=== PATIENT | male | born 2000 | race Caucasian/White ===

== ENCOUNTER 2022-02-12 13:53 | Emergency (ER) | payer OTHER, SELFPAY ==
[2022-02-12] VITALS (14 sets, daily range): BP systolic 117–128; BP diastolic 77–86; PULSE 60–72; RESP 9–16; TEMP 36.9; O2SAT 98–99
--- NOTE | 2022-02-12 14:00 | RT.EKG_ITS ---
APPROVED REPORT Exam: Resting ECG Reason for Exam: weakness Patient Location: E HR:64 bpm ECG Measurements Heart Rate 64 AXIS DC 164 P 26 QRSd 90 QRS 18 QT 373 T 39 QTc 386 Conclusion Sinus rhythm...normal P axis, V-rate 60- 99 ST elev, probable normal early repol pattern...ST elevation, age<55
--- NOTE | 2022-02-12 14:34 | DI.CT_ITS ---
Exam(s) CT BRAIN NECK CTA EXAM: CT BRAIN NECK CTA CLINICAL HISTORY: headache and dizziness with exertion today. TECHNIQUE: Imaging Protocol: Axial CT angiography was performed with multi-slice acquisition and mu lti-planar and/or 3D reconstructions. CONTRAST MATERIAL: Intravenous: Omnipaque 350 Contrast volume:85 mL COMPARISON: No exams were available for comparison FINDINGS: CT Head W/O and W: Ventricles and Extra axial spaces: Normal in size and morphology for the patient's age. Hemorrhage: None. Cerebral parenchyma: Normal. No evidence of an acute territorial infarct. Midline shift: None. Brainstem/Cerebellum: Normal. Calvarium: Normal. Visualized Paranasal sinuses/Mastoids: Clear. Soft Tissues: Unremarkable. Enhancement: Unremarkable. CTA Neck W: Common Carotid: Right: No dissection, occlusion or significant stenosis. Left: No dissection, occlusion or significant stenosis. External Carotid: Right: No occlusion or significant stenosis. Left: No occlusion or significant stenosis. Internal Carotid: Right: No dissection, occlusion or significant stenosis. Left: No dissection, occlusion or significant stenosis. Vertebral Artery: Right: No dissection, occlusion or significant stenosis. Left: No dissection, occlusion or significant stenosis. Lung Apices: Normal. Bones: Within normal limits for the patient's age. Soft Tissues: Normal. Thyroid gland: Unremarkable. CTA Brain W: Internal Carotid Arteries: Normal. Anterior Cerebral Arteries: Right: No aneurysm, occlusion or significant stenosis. The right anterior cerebral artery arises fro m the anterior communicating artery. Left: No aneurysm, occlusion or significant stenosis. Middle Cerebral Arteries: Right: No aneurysm, occlusion or significant stenosis. Left: No aneurysm, occlusion or significant stenosis. Posterior Cerebral Arteries: Right: No aneurysm, occlusion or significant stenosis. Left: No aneurysm, occlusion or significant stenosis. Vertebral Arteries: Right: No aneurysm, occlusion or significant stenosis. Left: No aneurysm, occlusion or significant stenosis. Basilar Artery: No aneurysm, occlusion or significant stenosis. IMPRESSION: 1. No large vessel occlusion or significant stenosis on the CT angiography of the head. 2. No acute intracranial process. 3. No occlusion or significant stenosis on the CT angiography of the neck. 4. Results of this exam have been verbally communicated with provider. RADIATION DOSE DELIVERED: 1343.44 mGy.cm Total DLP DATA REPOSITORY: All CT scans at this facility are submitted to the National Radiology Data Registry (NRDR) Dose Index Registry (DIR) with the [employer] (ACR). RADIATION OPTIMIZATION: All CT scans at this facility use at least one of these dose optimization te chniques: automated exposure control; mA and/or kV adjustment per patient size (includes targeted exa ms where dose is matched to clinical indication); or iterative reconstruction.
[2022-02-12 15:04] LABS: Abs Immature Grans 0.02 10^3/uL (0.0-0.06); Absolute Basophil Count 0.05 10^3/uL (0.0-0.2); Absolute Eosinophil Count 0.05 10^3/uL (0.0-0.7); Absolute Lymphocyte Count 1.11 10^3/uL (1.2-3.4); Absolute Monocyte Count 0.51 10^3/uL (0.1-0.8); Absolute Neutrophil Count 5.56 10^3/uL (1.2-6.7); Basophils % 0.7; Eosinophils % 0.7; HCT 43.9 % (40.0-50.0); HGB 15.3 g/dL (13.5-17.5); Immature Grans % 0.3; Lymphocytes % 15.2; MCH 30.7 pg (27.0-33.0); MCHC 34.9 % (32.0-36.0); MCV 88.2 fL (80-95); MPV 10.1 fL (8.0-11.0); Neutrophils % 76.1; Nucleated RBC 0 %; Platelet Count 191 10^3/uL (130-400); RBC 4.98 10^6/uL (4.36-5.78); RDW 11.8 % (11.8-14.1); RDW-SD 37.6 fL
[2022-02-12 15:27] LABS: ALT 32 U/L (16-63); AST 22 U/L (15-37); Albumin 4.5 g/dL (3.4-5.0); Alkaline Phosphatase 106 U/L (46-116); Anion Gap 8.9 mmol/L (3-11); BUN 18 mg/dL (7-18); Bilirubin, Total 0.8 mg/dL (0.2-1.0); CO2 28.1 mmol/L (21.0-32.0); Chloride 103 mmol/L (98-107); Glucose 91 mg/dL (74-106); Magnesium 1.9 mg/dL (1.8-2.4); Potassium 4.6 mmol/L (3.5-5.1); Sodium 140 mmol/L (136-145); Total Protein 7.6 g/dL (6.4-8.2); Troponin I < 50 ng/L (<or=60)
--- NOTE | 2022-02-12 17:21 | ED.GENADUL_ITS ---
Discharge Plan Disposition Patient Disposition: HOME Condition: Stable Discharge Details Clinical Impression: Dizziness, Headache Primary Care Provider: Unknown,Unknown ED Provider: Perry Hernandez Discharge Instructions Instructions: Dizziness (ED), General Headache (ED) Additional Instructions: No exertional activities (no sports) until cleared by your doctor. Please wear Holter monitor and returned as instructed. This device will monitor for any arrhythmia over the next 48 hours. Please contact your primary care physician to arrange follow-up. Return to the ER immediately for any worsening or new concerning symptoms. Discharge Orders Other Ambulatory Orders: Holter Monitor (Routine) Timeframe: 1 Week Facility: [facility] - Location: Respiratory Therapy Ordered By: Perry Hernandez Discharge Data Discharge Date/Time-TO BE ENTERED AT DEPARTURE: 02/12/22 18:35 Medical Decision Making --21-year-old male here with sudden onset of dizziness and headache that occurred with exertional activity just prior to arrival, associated heaviness with use of the left hand and difficulty ambulating. Patient is now hemodynamically stable. Neurologically intact. Headache resolved. Unclear etiology for symptoms. Consider intracranial aneurysm. Plan to obtain CT of the brain with CTA of the brain and neck. Unlikely ACS as patient otherwise healthy and atypical presentation. Screening EKG was reviewed and interpreted by me: Please see report, sinus rhythm 64 bpm, ST elevation consistent with benign early repolarization. Will check troponin. --Labs reviewed and normal CBC, normal electrolytes, troponin negative. --CT of the head and CTA interpreted by radiology as negative. Repeat troponin negative. Patient was given LR 500 mL bolus. --Patient reassessed and remained stable. Plan for discharge with outpatient follow-up with PCP. I will initiate Holter monitor to expedite outpatient work- up. Patient is encouraged to return immediately for any worsening or new concerning symptoms. Advised that he not participate in sports or perform exertional activities until cleared by his primary care physician. Lab Data Lab results reviewed: Yes I reviewed the patient's lab results. Labs: Laboratory Tests Range/Units 02/12/22 02/12/22 02/12/22 14:58 14:58 17:55 WBC (4.4-10.8) 10^3/uL 7.30 RBC (4.36-5.78) 10^6/uL 4.98 Hgb (13.5-17.5) g/dL 15.3 Hct (40.0-50.0) % 43.9 MCV (80-95) fL 88.2 MCH (27.0-33.0) pg 30.7 MCHC (32.0-36.0) % 34.9 RDW (11.8-14.1) % 11.8 Plt Count (130-400) 10^3/uL 191 MPV (8.0-11.0) fL 10.1 Immature Gran % 0.3 Neutrophils % 76.1 Lymphocytes % 15.2 Monocytes % 7.0 Eosinophils % 0.7 Basophils % 0.7 Nucleated RBC % % 0 Absolute Neutrophils (1.2-6.7) 10^3/uL 5.56 Absolute Lymphocytes (1.2-3.4) 10^3/uL 1.11 L Absolute Monocytes (0.1-0.8) 10^3/uL 0.51 Absolute Eosinophils (0.0-0.7) 10^3/uL 0.05 Absolute Basophils (0.0-0.2) 10^3/uL 0.05 Sodium (136-145) mmol/L 140 Potassium (3.5-5.1) mmol/L 4.6 Chloride (98-107) mmol/L 103 Carbon Dioxide (21.0-32.0) mmol/L 28.1 Anion Gap (3-11) mmol/L 8.9 BUN (7-18) mg/dL 18 Creatinine (0.70-1.30) mg/dL 1.0 Estimated GFR/1.73 m2 (mL/min/1.73m2) >= 60.00 Glucose (74-106) mg/dL 91 Calcium (8.5-10.1) mg/dL 9.0 Magnesium (1.8-2.4) mg/dL 1.9 Total Bilirubin (0.2-1.0) mg/dL 0.8 AST (15-37) U/L 22 ALT (16-63) U/L 32 Alkaline Phosphatase (46-116) U/L 106 Troponin I (<or=60) ng/L < 50 < 50 Total Protein (6.4-8.2) g/dL 7.6 Albumin (3.4-5.0) g/dL 4.5 HPI General Mode of arrival: ambulatory . Date/Time Provider Initiated Documentation: 02/12/22 13:54 . Limitations to Documentation: no limitations . Information obtained by: patient . HPI Narrative: 21-year-old male presents with chief complaint of dizziness. Patient notes he was at baseball practice having completed batting practice and was moving a heavy piece of equipment and suddenly developed dizziness with associated headache. He notes symptoms were moderate and persisted. He had associated heaviness trying to lift an object with his left hand. Patient has had difficulty walking. This occurred just prior to arrival. Symptoms have since improved. He has no persistent headache. Patient denies associated chest pain or shortness of breath. Prior to this episode he notes he was feeling fine today. He does state he had similar episode 2 weeks ago that was less severe. Related Data Allergies Allergy/AdvReac Type Severity Reaction Status Date / Time No Known Allergies Allergy Unverified 02/12/22 14:11 General Stated Complaint: SOB LARRY: 3 Review of Systems All systems reviewed & are unremarkable except as noted in HPI and below Constitutional Constitutional: Denies fever(s) Cardiovascular Cardiovascular: Denies chest pain Neurologic Neurologic: Reports as per HPI PFSH All Active Problems (Updated 02/12/22 @ 18:21 by Perry Hernandez MD) Dizziness (Acute) Headache (Acute) Social History Smoking/Tobacco Use Status: Never Smoking risk assessment performed?: Yes Alcohol Intake: current Substance use type: does not use Exam Const General: cooperative and no acute distress HENMT Head: normocephalic and atraumatic Mouth: moist mucous membranes Eyes Conjunctivae: normal conjunctivae Sclera: normal sclerae Neck Neck: trachea midline and supple Resp Auscultation: clear to auscultation bilaterally, no rales, no rhonchi and no wheezes Cardio Rate: regular rate and not tachycardic Rhythm: regular rhythm GI Palpation: soft, not firm, no guarding, no masses, not rigid and nontender Skin General skin exam: no rashes or lesions noted Neuro General: patient alert, patient awake, patient oriented x3 and tone normal Cranial Nerves: CN's II-XI intact bilaterally Cognition: normal cognition Speech: speech normal Motor: strength 5/5 throughout Sensory Exam: no sensory deficits noted Coordination: [id number] test normal and other (Rapid alternating movements intact) Extrem General: no edema Psych Appearance: grossly normal Mental Status: mental status grossly normal Speech and Movement: speech and movement normal Course Vital Signs Vital signs: Vital Signs Temperature 36.9 C 02/12/22 14:02 Pulse 65 02/12/22 14:02 Respiratory Rate 16 02/12/22 14:02 Blood Pressure 124/86 02/12/22 14:02 Pulse Oximetry 99 02/12/22 14:02 Temperature 36.9 C 02/12/22 14:02 Temperature Source Skin 02/12/22 14:02 Pulse 63 02/12/22 14:46 Pulse 68 02/12/22 14:47 Respiratory Rate 9 L 02/12/22 15:05 Respiratory Effort Non-Labored 02/12/22 15:05 Respiratory Depth Normal 02/12/22 15:05 Respiratory Pattern Normal 02/12/22 15:05 Blood Pressure 119/83 02/12/22 14:46 Blood Pressure Mean 92 02/12/22 14:46 Blood Pressure Position Supine 02/12/22 14:02 Pulse Oximetry 99 02/12/22 14:02 Pain Level 0 02/12/22 14:02 Lab/Test Results Lab/Test Results: Laboratory Tests Range/Units 02/12/22 02/12/22 14:58 14:58 WBC (4.4-10.8) 10^3/uL 7.30 RBC (4.36-5.78) 10^6/uL 4.98 Hgb (13.5-17.5) g/dL 15.3 Hct (40.0-50.0) % 43.9 MCV (80-95) fL 88.2 MCH (27.0-33.0) pg 30.7 MCHC (32.0-36.0) % 34.9 RDW (11.8-14.1) % 11.8 Plt Count (130-400) 10^3/uL 191 MPV (8.0-11.0) fL 10.1 Immature Gran % 0.3 Neutrophils % 76.1 Lymphocytes % 15.2 Monocytes % 7.0 Eosinophils % 0.7 Basophils % 0.7 Nucleated RBC % % 0 Absolute Neutrophils (1.2-6.7) 10^3/uL 5.56 Absolute Lymphocytes (1.2-3.4) 10^3/uL 1.11 L Absolute Monocytes (0.1-0.8) 10^3/uL 0.51 Absolute Eosinophils (0.0-0.7) 10^3/uL 0.05 Absolute Basophils (0.0-0.2) 10^3/uL 0.05 Sodium (136-145) mmol/L 140 Potassium (3.5-5.1) mmol/L 4.6 Chloride (98-107) mmol/L 103 Carbon Dioxide (21.0-32.0) mmol/L 28.1 Anion Gap (3-11) mmol/L 8.9 BUN (7-18) mg/dL 18 Creatinine (0.70-1.30) mg/dL 1.0 Estimated GFR/1.73 m2 (mL/min/1.73m2) >= 60.00 Glucose (74-106) mg/dL 91 Calcium (8.5-10.1) mg/dL 9.0 Magnesium (1.8-2.4) mg/dL 1.9 Total Bilirubin (0.2-1.0) mg/dL 0.8 AST (15-37) U/L 22 ALT (16-63) U/L 32 Alkaline Phosphatase (46-116) U/L 106 Troponin I (<or=60) ng/L < 50 Total Protein (6.4-8.2) g/dL 7.6 Albumin (3.4-5.0) g/dL 4.5
[2022-02-12] MEDS: Lactated Ringers 500 ML 1000 ML IV (17:45)
[2022-02-12 18:17] LABS: Troponin I < 50 ng/L (<or=60)
--- NOTE | 2022-02-12 18:32 | NUR.NOTE ---
Referral to PCP needed to establish care, and f/u from ed visit and clearance, SUJEY.
== END 2022-02-12 18:35 | disposition home or self-care (01) ==
PROVIDERS: Emergency Provider Student in an Organized Health Care Education/Training Program
DX: R42 Dizziness and giddiness (principal); R51.9 Headache, unspecified; R94.31 Abnormal electrocardiogram [ECG] [EKG]
CPT/HCPCS: 36415; 70496; 70498; 80053; 93005; 96360; 99284; 83735; 84484; 85025; 93010; 93225

== ENCOUNTER 2022-02-12 18:33 | Outpatient (RCR) | payer OTHER, SELFPAY ==
--- NOTE | 2022-02-18 12:00 | HOLTER_ITS ---
APPROVED REPORT Conclusion This is a 48-hour Holter monitor ordered for dizziness Predominant rhythm was sinus with an average heart rate of 69. Minimum was 51, maximum 109 A total of 4 isolated premature ventricular contractions were seen. There was one isolated atrial pr emature beat There was no atrial fibrillation, no high-grade AV block, no pauses greater than 3 seconds Patient symptoms were reported which had no correlation to any dysrhythmia
== END 2022-03-02 23:59 | disposition home or self-care (01) ==
LOC: RT 18:33
PROVIDERS: Visit Provider Student in an Organized Health Care Education/Training Program
DX: R42 Dizziness and giddiness (principal); I49.3 Ventricular premature depolarization
CPT/HCPCS: 93225; 93226

== ENCOUNTER 2022-02-18 12:30 | Emergency (ER) | payer OTHER, SELFPAY ==
[2022-02-18] VITALS (16 sets, daily range): BP systolic 112–137; BP diastolic 62–90; PULSE 0–91; RESP 9–18; TEMP 36.8; O2SAT 95–100
--- NOTE | 2022-02-18 12:15 | RT.EKG_ITS ---
APPROVED REPORT Exam: Resting ECG Reason for Exam: sob Patient Location: E HR:70 bpm ECG Measurements Heart Rate 70 AXIS RI 153 P 57 QRSd 89 QRS 48 QT 356 T 59 QTc 383 Conclusion Sinus rhythm...normal P axis, V-rate 60- [address] elevation, anterior leads...ST >0.15mV in V1-V4 normal sinus rhythm, normal axis, normal intervals, no evidence of WPW, HOCM, Brugada, ARVD, or prolo nged QT, non ischemic
--- NOTE | 2022-02-18 12:45 | DI.CT_ITS ---
Exam(s) CT CHEST PE CTA EXAM: CT CHEST PE CTA CLINICAL HISTORY: repeated syncope, sob. TECHNIQUE: Imaging Protocol: Axial CT angiography was performed with multi-slice acquisition and mu lti-planar reconstructions as well as axial, coronal and sagittal MIP reconstructions. CONTRAST MATERIAL: Intravenous: Omnipaque 350 Contrast volume:100 ml COMPARISON: CT CT BRAIN NECK CTA from 02/12/2022 FINDINGS: Pulmonary Arteries: No evidence of filling defect to suggest pulmonary emboli. Tracheobronchial tree: Patent where visualized. Mediastinum and Joyce: No dominant adenopathy or fluid collection. Pulmonary parenchyma: No consolidation or dominant measurable mass. Pleura: No effusion or pneumothorax. Heart: The heart is not dilated. No coronary artery calcifications are seen. Aorta: Motion at the aortic root. Thoracic aorta non-dilated. No aneurysm. No dissection. Upper abdomen: Unremarkable. Bones: Unremarkable for age. Soft tissues: Mild bilateral gynecomastia. IMPRESSION: No evidence of pulmonary embolism or other acute abnormality.. RADIATION DOSE DELIVERED: 501.67mGy.cm Total DLP DATA REPOSITORY: All CT scans at this facility are submitted to the National Radiology Data Registry (NRDR) Dose Index Registry (DIR) with the [employer] (ACR). RADIATION OPTIMIZATION: All CT scans at this facility use at least one of these dose optimization te chniques: automated exposure control; mA and/or kV adjustment per patient size (includes targeted exa ms where dose is matched to clinical indication); or iterative reconstruction.
--- NOTE | 2022-02-18 13:03 | ED.GENADUL_ITS ---
Discharge Plan Disposition Patient Disposition: HOME Condition: Improving Discharge Details Chief Complaint: Dizzy/Sync Clinical Impression: Dizziness, Pre-syncope Primary Care Provider: Unknown,Unknown ED Provider: Richar Anthony Home Meds and New Rx's Prescriptions: No Action No Known Home Meds 0RF Discharge Instructions Instructions: Near Syncope (ED), Dizziness (ED) Additional Instructions: Please follow-up with cardiology and neurology as scheduled. Please return to the emergency department for any worsening symptoms such as worsening headache nausea vomiting weakness fatigue passing out chest pain or trouble breathing or other abnormal symptoms. Ensure that you stay hydrated. Please abstain from strenuous physical activity until you are evaluated by the specialist Medical Decision Making 21-year-old male no past medical history presents with recurrent episodes of presyncope, fatigue, and shortness of breath. Denies recent illness or travel. Denies drug or alcohol use. Denies history of premature cardiac in the family. Endorses presyncope and shortness of breath. Currently be evaluated with Holter monitor. Event today happened when going from a seated/resting to a standing position. Denies chest pain however does endorse shortness of breath. No peripheral edema. No PE risk factors no ACS risk factors. Consider orthostatic hypotension versus less likely vasovagal syncope/presyncope versus must consider cardiogenic cause such as HOCM versus less likely myocarditis pericarditis PE or aortic dissection. No evidence of heart block WPW HOCM Brugada ARVD or prolonged QTC on EKG. Bedside ultrasound showing normal appearing ejection fraction, no pericardial effusion, normal valvular motion. However given repeat event we will pursue evaluation with labs, CT chest, EKG, trial of fluids close reassessment likely discharge with follow-up. 15: 58 patient resting comfortably no acute distress ambulatory without assistance symptomatology greatly improved after fluids. Likely component of dehydration. Holter monitor results reviewed evidence of PVCs without arrh ythmia. Patient be given cardiology and neurology follow-up. Given strict return precautions. Told to abstain from his physical activity until he is evaluated by these specialist. HPI General Date/Time Provider Initiated Documentation: 02/18/22 12:43 . HPI Narrative: 21-year-old male no past medical history presents with recurrent presyncopal and syncopal episodes over the past week, first initial presentation was after exertion at which point he developed a headache and motor deficits, was evaluated with CT CTA head and neck as well as cardiac evaluation was negative, discharged home with Holter monitor and follow-up, today patient was going from a seated/lying down position to a standing position became presyncopal and experienced shortness of breath. Denies nausea vomiting or diarrhea. Denies drug or alcohol use. No family history of sudden cardiac . Related Data Home Medications Medication Instructions Recorded Confirmed Unknown [No Known Home Meds] 02/18/22 02/18/22 Allergies Allergy/AdvReac Type Severity Reaction Status Date / Time No Known Allergies Allergy Unverified 02/18/22 12:35 General Stated Complaint: Dizzy/Sync LARRY: 3 Review of Systems Narrative: Review of Systems Constitutional: negative Eyes: negative ENT: negative Cardiovascular: Presyncope Respiratory: Shortness of breath Gastrointestinal: negative : negative Musculoskeletal: negative Skin: negative Neurologic: negative Psych: negative PFSH All Active Problems (Updated 02/18/22 @ 16:00 by Richar Anthony MD) Dizziness (Acute) Headache (Acute) Pre-syncope (Acute) Social History Smoking/Tobacco Use Status: Never Smoking risk assessment performed?: Yes Alcohol Intake: never Drug use: Never Substance use type: does not use Do you feel safe at home: Yes Do you feel safe in your relationship?: Yes Exam Narrative Exam Narrative: Physical Examination General: alert, awake, cooperative, appears mildly uncomfortable HEENT: normocephalic, atraumatic; PERRL, EOM intact, conjunctiva normal; no nasal discharge; moist mucous membranes, oral and pharyngeal mucosa normal, tolerating secretions Neck: supple, trachea midline; full ROM Chest: normal to inspection Respiratory: normal respiratory effort, speaking in full sentences, clear to auscultation, no wheezing, rales or rhonchi Cardiac: regular rate, regular rhythm, S1S2 intact, no murmurs rubs or gallops; normal peripheral pulses GI: abdomen soft, non-tender, non-distended; no palpable mass or hepatosplenomegaly Skin: no lesions, rashes or trauma appreciated Neuro: AAOx3, normal speech, moving all extremities, moving all extremities without weakness Extremities: No peripheral edema; warm well perfused extremities Psych: Appropriate mood and affect Course Vital Signs Vital signs: Vital Signs Temperature 36.8 C 02/18/22 12:32 Pulse 70 02/18/22 12:32 Respiratory Rate 16 02/18/22 12:32 Blood Pressure 134/70 02/18/22 12:32 Pulse Oximetry 100 02/18/22 12:32 Temperature 36.8 C 02/18/22 12:32 Temperature Source Temporal Artery Scan 02/18/22 12:32 Pulse 70 02/18/22 12:32 Respiratory Rate 16 02/18/22 12:32 Respiratory Effort 02/18/22 12:58 Respiratory Depth Normal 02/18/22 12:58 Respiratory Pattern Normal 02/18/22 12:58 Blood Pressure 134/70 02/18/22 12:32 Blood Pressure Position Sitting 02/18/22 12:32 Pulse Oximetry 100 02/18/22 12:32 Oxygen Delivery Method Room Air 02/18/22 12:32 Oxygen Flow Rate 0 02/18/22 12:32
[2022-02-18] MEDS: Normal Saline 1,000 ML 1000 ML IV (13:10)
[2022-02-18 13:16] LABS: Absolute Basophil Count 0.04 10^3/uL (0.0-0.2); Absolute Eosinophil Count 0.01 10^3/uL (0.0-0.7); Absolute Lymphocyte Count 0.69 10^3/uL (1.2-3.4); Absolute Monocyte Count 0.24 10^3/uL (0.1-0.8); Absolute Neutrophil Count 3.02 10^3/uL (1.2-6.7); Eosinophils % 0.3; HCT 45.3 % (40.0-50.0); HGB 15.4 g/dL (13.5-17.5); Lymphocytes % 17.3; MCV 88.3 fL (80-95); MPV 10.1 fL (8.0-11.0); Neutrophils % 75.4; Platelet Count 201 10^3/uL (130-400); RBC 5.13 10^6/uL (4.36-5.78); RDW 11.5 % (11.8-14.1); RDW-SD 37.2 fL
[2022-02-18] MEDS: Acetaminophen 500 MG TAB (13:16)
[2022-02-18 13:30] LABS: INR 1.1 (0.9-1.1); PTT Activated 25.5 sec (21.0-27.5); Prothrombin Time 11.5 sec (9.3-11.0)
[2022-02-18 13:36] LABS: ALT 24 U/L (16-63); AST 14 U/L (15-37); Albumin 4.5 g/dL (3.4-5.0); Alkaline Phosphatase 99 U/L (46-116); Anion Gap 3.2 mmol/L (3-11); BUN 19 mg/dL (7-18); Bilirubin, Total 0.8 mg/dL (0.2-1.0); CO2 32.8 mmol/L (21.0-32.0); CREATININE 1.2 mg/dL (0.70-1.30); Calcium 9.2 mg/dL (8.5-10.1); Chloride 104 mmol/L (98-107); Glucose 92 mg/dL (74-106); Sodium 140 mmol/L (136-145); Total Protein 7.5 g/dL (6.4-8.2); Troponin I < 50 ng/L (<or=60)
[2022-02-18 13:37] LABS: NT-proBNP < 5 pg/mL (<300)
[2022-02-18] MEDS: Omnipaque 350 MG/ML 100 ML BTL IJ (13:49)
[2022-02-18 15:14] LABS: *AMPHETAMINES SCREEN URINE Negative (Negative); *BARBITURATES SCREEN URINE Negative (Negative); *BENZODIAZEPINES SCREEN URINE Negative (Negative); Cannabinoids THC Negative (Negative); Cocaine Screen,Urine Negative (Negative); METHADONE URINE SCREEN Negative (Negative); OPIATES URINE SCREEN Negative (Negative)
[2022-02-18 15:15] LABS: Tricyclic Antidepressants Negative (Negative)
[2022-02-18 15:37] LABS: Troponin I < 50 ng/L (<or=60)
--- NOTE | 2022-02-18 17:53 | NUR.NOTE ---
Referrals made per Dr. Anthony for establishment of a PCP, Neurology and Cardiology. Faxed the referrals to Neurology and Cardiology and put the info in the transitional care manager's box for follow up.
== END 2022-02-18 16:19 | disposition home or self-care (01) ==
PROVIDERS: Emergency Provider Emergency Medicine
DX: R42 Dizziness and giddiness (principal); R55 Syncope and collapse; R06.02 Shortness of breath; R51.9 Headache, unspecified
CPT/HCPCS: 71275; 80053; 80307; 93005; 96360; 99285; 83880; 84484; 85025; 85610; 85730; 93010; 99284; J3490

== ENCOUNTER 2022-02-20 10:22 | Emergency (ER) | payer OTHER, SELFPAY ==
[2022-02-20 10:25] VITALS: BP 117/75; PULSE 89; RESP 16; TEMP 37.4; O2SAT 98
[2022-02-20] MEDS: Normal Saline 1,000 ML 1000 ML IV (11:10)
[2022-02-20] MEDS: Ketorolac 30 MG/ML VIAL IVP (11:10)
[2022-02-20 11:16] LABS: Abs Immature Grans 0.04 10^3/uL (0.0-0.06); Absolute Basophil Count 0.01 10^3/uL (0.0-0.2); Absolute Lymphocyte Count 0.66 10^3/uL (1.2-3.4); Absolute Monocyte Count 0.74 10^3/uL (0.1-0.8); Absolute Neutrophil Count 8.16 10^3/uL (1.2-6.7); Basophils % 0.1; HCT 43.2 % (40.0-50.0); HGB 14.7 g/dL (13.5-17.5); Immature Grans % 0.4; Lymphocytes % 6.9; MCH 29.6 pg (27.0-33.0); MCV 87.1 fL (80-95); MPV 10.1 fL (8.0-11.0); Monocytes % 7.7; Neutrophils % 84.9; Platelet Count 174 10^3/uL (130-400); RBC 4.96 10^6/uL (4.36-5.78); RDW 11.4 % (11.8-14.1); RDW-SD 36.6 fL; WBC 9.61 10^3/uL (4.4-10.8)
[2022-02-20 11:23] LABS: ESR 4 mm/hr (0-15); Magnesium 1.7 mg/dL (1.8-2.4)
[2022-02-20 11:24] LABS: Source Nasal/Nares
[2022-02-20 11:25] LABS: C-Reactive Protein 1.77 mg/dL (0.0-0.3)
[2022-02-20 11:29] LABS: ALT 22 U/L (16-63); AST 12 U/L (15-37); Albumin 4.3 g/dL (3.4-5.0); Alkaline Phosphatase 86 U/L (46-116); BUN 12 mg/dL (7-18); Bilirubin, Total 1.4 mg/dL (0.2-1.0); CREATININE 1.1 mg/dL (0.70-1.30); Calcium 8.8 mg/dL (8.5-10.1); Chloride 100 mmol/L (98-107); Glucose 94 mg/dL (74-106); Potassium 4.1 mmol/L (3.5-5.1); Sodium 135 mmol/L (136-145); Total Protein 7.5 g/dL (6.4-8.2)
[2022-02-20 11:30] LABS: INR 1.2 (0.9-1.1); PTT Activated 25.9 sec (21.0-27.5); Prothrombin Time 11.8 sec (9.3-11.0)
[2022-02-20] MEDS: Magnesium Oxide 400 MG TAB PO (11:54)
--- NOTE | 2022-02-20 12:03 | DI.MRI_ITS ---
Exam(s) MR BRAIN WO/W EXAM: MR BRAIN WO/W CLINICAL HISTORY: Headache, positive Romberg's, presyncopal TECHNIQUE: Multiplanar multisequence MRI of the brain was performed. Additional post contrast T1 we ighted axial and coronal and multiplanar MP rage images were obtained. COMPARISON: CT CT BRAIN NECK CTA from 02/12/2022 FINDINGS: The ventricular system is normal in appearance. There are areas of left parietal and occipital encephalomalacia with mildly abnormal signal seen in t he left occipital focus of apparent encephalomalacia on T2 weighted and FLAIR images. Findings are c onsistent with old infarction or other insult. The orbital and temporal bone structures appear intact as does the pituitary. Diffusion weighted imaging shows no evidence of acute or subacute infarction. Susceptibility weighted imaging shows no evidence of intracranial hemorrhage. There is normal flow void in the [place] vasculature. No mass lesion or enhancing lesion identified in the brain.. IMPRESSION: No evidence of acute intracranial process. Small focal areas of encephalomalacia noted in left parie lewis and left occipital lobes. DATA REPOSITORY:
[2022-02-20 12:39] LABS: COVID-19 PCR Negative (Negative)
[2022-02-20 13:34] VITALS: BP 109/61; PULSE 74; RESP 16; TEMP 36.8; O2SAT 95
--- NOTE | 2022-02-20 14:33 | ED.GENADUL_ITS ---
Discharge Plan Disposition Patient Disposition: HOME Discharge Details Clinical Impression: Headache, Dizziness, Encephalomalacia Primary Care Provider: Unknown,Unknown ED Provider: Luigi Allen Home Meds and New Rx's Prescriptions: No Action No Known Home Meds 0RF Discharge Instructions Instructions: Dizziness (ED), General Headache (ED) Additional Instructions: As we discussed your MRI findings are concerning and abnormal. I had a discussion with neurology at [facility] with both Dr. Trinidad and Dr. Sweeney, and then spoke with Dr. Mitchell who is covering for Dr. Casarez, your primary care provider. Please watch for new or worsening symptoms and return immediately to the ER. Per neurology recommendation, we are attempting to have you have an outpatient urgent EEG. If the EEG is normal then you can likely await outpatient follow-up when you return home from school in the next 2 weeks with both neurology and neuro-ophthalmology. If the EEG is abnormal they are recommending follow-up sooner. Either Dr. Casarez or her office should be contacting you tomorrow to help expedite this outpatient process. Also be neurology clinic at [facility] should also be reaching out to you tomorrow to set up an urgent outpatient neurology clinic appointment. Medical Decision Making Patient presenting to the emergency department for chief complaint of headache. Patient states that this started 8 days ago when he was lifting some heavy baseball equipment he had episode of near syncope and headache. Had full and thorough evaluation in the emergency department with symptoms resolving. Patient then returned 2 days ago for worsening symptoms with some sensation of palpitations and continued headache. Again had thorough work-up with no worrisome findings noted. Patient pending follow-up with cardiology and neurology but today saw the [facility] and given worsening symptoms and now having positive Romberg's they sent patient to the emergency department. Physical exam shows that patient has some photophobia and positive Romberg otherwise no specific physical exam findings are noted. Plan to check labs including COVID and given worsening headache with negative CT imaging in the past and now neurological findings will attempt to obtain MR for further evaluation. Patient has no nuchal rigidity to suggest meningitis. Review of labs show nondiagnostic CBC, sodium of 135 magnesium 1.7 and slightly elevated total bili of 1.4, unremarkable ESR but CRP is slightly elevated at 1.7, patient is negative for COVID and although other labs are nondiagnostic. Pending MRI patient reassessed and still states headache but did have some slight improvement after fluids and Toradol. We will continue to monitor. Patient denies any new symptoms. Spoke to radiologist and reported MRI IMPRESSION: No evidence of acute intracranial process. Small focal areas of encephalomalacia noted in left parietal and left occipital lobes Radiologist did recommended a neurology consult. Pending neurology consult patient signed out to CHRISTAL Mehta [address] Luigi Allen PA-C I assumed care of this 21-year-old gentleman from my colleague BRITT Smallwood, please see his initial HPI and examination. At time of signout awaiting neurology consultation. I received a call back at [phone] Trinidad, neurology, [facility]. She questions if there is a history of trauma which the patient denies. She also questions if this may be an incidental finding. She does not believe that an LP is indicated. She recommends that he stay away from sustained attention such as driving, swimming, balancing on a ladder, etc. She does believe that he can continue to play baseball. Believe that he can safely be discharged with outpatient urgent EEG. If the EEG is normal then she believes he can wait to be seen by neurology and neuro-ophthalmology when he returns home from school in approximately 2 weeks. If the EEG is abnormal then she recommends outpatient follow-up with the subspecialties sooner. I attempted to make an appointment for an EEG through our facility for the patient but it was brought to my attention that unfortunately we do not have the capacity at this time. I placed a call to both [facility] neurology and his PCP in [facility] to discuss his medical and social situation to help expedite outpatient EEG. I received a call from Dr. Mitchell who was covering for Dr. Casarez. She is aware of his presentation, MRI findings, and need for urgent EEG for further evaluation of his ongoing symptoms. She will discuss the case with Dr. Casarez tomorrow and had either Dr. Casarez or her office reach out directly to the patient tomorrow to help expedite this process. I then received a call back from neurology at [phone] Sweeney, [facility]. Unfortunately she is unable to help expedite outpatient EEG. She is able to get him an urgent clinic appointment likely the beginning of next week and from there to move forward with EEG. She did state that if he continues to be symptomatic, symptoms change or evolve, that presenting directly to the [facility] ER where they have neurology and EEG capability would likely be beneficial for the patient. I relayed my conversation with Dr. Trinidad, Dr. Mitchell, and Dr. Sweeney with the patient. He has no additional questions or concerns and is comfortable discharge at this time. Strict discharge and return precautions were provided. This documentation was generated using [employer] dictation system, please disregard any oddities of phrase or misspellings. Medical Records Medical records reviewed: Yes I reviewed the patient's medical records. Medical records narrative: Reviewed previous emergency department work-up Lab Data Labs: Laboratory Tests Range/Units 02/20/22 02/20/22 02/20/22 10:53 11:05 11:05 WBC (4.4-10.8) 10^3/uL 9.61 RBC (4.36-5.78) 10^6/uL 4.96 Hgb (13.5-17.5) g/dL 14.7 Hct (40.0-50.0) % 43.2 MCV (80-95) fL 87.1 MCH (27.0-33.0) pg 29.6 MCHC (32.0-36.0) % 34.0 RDW (11.8-14.1) % 11.4 L Plt Count (130-400) 10^3/uL 174 MPV (8.0-11.0) fL 10.1 Immature Gran % 0.4 Neutrophils % 84.9 Lymphocytes % 6.9 Monocytes % 7.7 Eosinophils % 0.0 Basophils % 0.1 Nucleated RBC % (0.0-0.3) % 0.0 Absolute Neutrophils (1.2-6.7) 10^3/uL 8.16 H Absolute Lymphocytes (1.2-3.4) 10^3/uL 0.66 L Absolute Monocytes (0.1-0.8) 10^3/uL 0.74 Absolute Eosinophils (0.0-0.7) 10^3/uL 0.00 Absolute Basophils (0.0-0.2) 10^3/uL 0.01 ESR (0-15) mm/hr 4 PT (9.3-11.0) sec INR (0.9-1.1) APTT (21.0-27.5) sec Sodium (136-145) mmol/L 135 L Potassium (3.5-5.1) mmol/L 4.1 Chloride (98-107) mmol/L 100 Carbon Dioxide (21.0-32.0) mmol/L 29.0 Anion Gap (3-11) mmol/L 6.0 BUN (7-18) mg/dL 12 D Creatinine (0.70-1.30) mg/dL 1.1 Estimated GFR/1.73 m2 (mL/min/1.73m2) >= 60.00 Glucose (74-106) mg/dL 94 Calcium (8.5-10.1) mg/dL 8.8 Magnesium (1.8-2.4) mg/dL Total Bilirubin (0.2-1.0) mg/dL 1.4 H AST (15-37) U/L 12 L ALT (16-63) U/L 22 Alkaline Phosphatase (46-116) U/L 86 C-Reactive Protein (0.0-0.3) mg/dL Total Protein (6.4-8.2) g/dL 7.5 Albumin (3.4-5.0) g/dL 4.3 COVID-19 Source SARS-CoV-2 (PCR) (Negative) Range/Units 02/20/22 02/20/22 02/20/22 11:05 11:05 11:05 WBC (4.4-10.8) 10^3/uL RBC (4.36-5.78) 10^6/uL Hgb (13.5-17.5) g/dL Hct (40.0-50.0) % MCV (80-95) fL MCH (27.0-33.0) pg MCHC (32.0-36.0) % RDW (11.8-14.1) % Plt Count (130-400) 10^3/uL MPV (8.0-11.0) fL Immature Gran % Neutrophils % Lymphocytes % Monocytes % Eosinophils % Basophils % Nucleated RBC % (0.0-0.3) % Absolute Neutrophils (1.2-6.7) 10^3/uL Absolute Lymphocytes (1.2-3.4) 10^3/uL Absolute Monocytes (0.1-0.8) 10^3/uL Absolute Eosinophils (0.0-0.7) 10^3/uL Absolute Basophils (0.0-0.2) 10^3/uL ESR (0-15) mm/hr PT (9.3-11.0) sec 11.8 H INR (0.9-1.1) 1.2 H APTT (21.0-27.5) sec 25.9 Sodium (136-145) mmol/L Potassium (3.5-5.1) mmol/L Chloride (98-107) mmol/L Carbon Dioxide (21.0-32.0) mmol/L Anion Gap (3-11) mmol/L BUN (7-18) mg/dL Creatinine (0.70-1.30) mg/dL Estimated GFR/1.73 m2 (mL/min/1.73m2) Glucose (74-106) mg/dL Calcium (8.5-10.1) mg/dL Magnesium (1.8-2.4) mg/dL 1.7 L Total Bilirubin (0.2-1.0) mg/dL AST (15-37) U/L ALT (16-63) U/L Alkaline Phosphatase (46-116) U/L C-Reactive Protein (0.0-0.3) mg/dL 1.77 H Total Protein (6.4-8.2) g/dL Albumin (3.4-5.0) g/dL COVID-19 Source SARS-CoV-2 (PCR) (Negative) Range/Units 02/20/22 11:17 WBC (4.4-10.8) 10^3/uL RBC (4.36-5.78) 10^6/uL Hgb (13.5-17.5) g/dL Hct (40.0-50.0) % MCV (80-95) fL MCH (27.0-33.0) pg MCHC (32.0-36.0) % RDW (11.8-14.1) % Plt Count (130-400) 10^3/uL MPV (8.0-11.0) fL Immature Gran % Neutrophils % Lymphocytes % Monocytes % Eosinophils % Basophils % Nucleated RBC % (0.0-0.3) % Absolute Neutrophils (1.2-6.7) 10^3/uL Absolute Lymphocytes (1.2-3.4) 10^3/uL Absolute Monocytes (0.1-0.8) 10^3/uL Absolute Eosinophils (0.0-0.7) 10^3/uL Absolute Basophils (0.0-0.2) 10^3/uL ESR (0-15) mm/hr PT (9.3-11.0) sec INR (0.9-1.1) APTT (21.0-27.5) sec Sodium (136-145) mmol/L Potassium (3.5-5.1) mmol/L Chloride (98-107) mmol/L Carbon Dioxide (21.0-32.0) mmol/L Anion Gap (3-11) mmol/L BUN (7-18) mg/dL Creatinine (0.70-1.30) mg/dL Estimated GFR/1.73 m2 (mL/min/1.73m2) Glucose (74-106) mg/dL Calcium (8.5-10.1) mg/dL Magnesium (1.8-2.4) mg/dL Total Bilirubin (0.2-1.0) mg/dL AST (15-37) U/L ALT (16-63) U/L Alkaline Phosphatase (46-116) U/L C-Reactive Protein (0.0-0.3) mg/dL Total Protein (6.4-8.2) g/dL Albumin (3.4-5.0) g/dL COVID-19 Source Nasal/Nares SARS-CoV-2 (PCR) (Negative) Negative HPI General Mode of arrival: ambulatory . Date/Time Provider Initiated Documentation: 02/20/22 10:40 . Limitations to Documentation: no limitations . Information obtained by: patient, RN notes reviewed and old records reviewed . History of Present Illness 21 year old M presents to the emergency department with the chief complaint of Headache, described as severe, with intensity rated at 10. Quality is described as sharp, and is localized to the head. Patient reports no radiation. Patient started experiencing this day(s) (8) and it has been constant. improves with No relieving factors improve symptom(s), Movement worsens symptoms . Patient notes malaise and weakness. Patient did receive the following treatments prior to arrival, none Related Data Home Medications Medication Instructions Recorded Confirmed Unknown [No Known Home Meds] 02/18/22 02/20/22 Allergies Allergy/AdvReac Type Severity Reaction Status Date / Time No Known Allergies Allergy Unverified 02/20/22 10:31 General Stated Complaint: Headache LARRY: 3 Review of Systems Constitutional Constitutional: Denies body ache(s), Reports chills, Denies fever(s) and Reports headache(s) Eyes Eyes: Denies change in vision and Reports photophobia ENT Ears, Nose, Mouth, and Throat: Reports dizziness, Reports headache(s) and Denies neck pain Cardiovascular Cardiovascular: Denies chest pain, Denies syncope and Denies rapid heart rate Respiratory Respiratory: Denies cough Gastrointestinal Gastrointestinal: Denies abdominal pain, Reports nausea and Reports vomiting Musculoskeletal Musculoskeletal: Denies neck pain Integumentary/Breasts Skin/Breast: Denies rash Neurologic Neurologic: Reports as per HPI, Reports dizziness, Denies syncope, Reports headache(s), Denies localized weakness, Denies sensory deficit and Denies paresthesias PFSH All Active Problems (Updated 02/20/22 @ 19:14 by CHRISTAL Gordillo) Dizziness (Acute) Headache (Acute) Pre-syncope (Acute) Encephalomalacia (Acute) Social History Smoking/Tobacco Use Status: Never Smoking risk assessment performed?: Yes Alcohol Intake: never Drug use: Never Substance use type: does not use Do you feel safe at home: Yes Do you feel safe in your relationship?: Yes Exam Const General: cooperative, healthy appearing, no acute distress and well groomed Orientation: alert, awake and oriented x3 HENMT Head: normal to inspection Ears: hearing grossly normal bilaterally and TM's normal bilaterally Mouth: oral mucosae normal and moist mucous membranes Throat: posterior oropharynx normal Eyes Visual Bear: normal visual bear by confrontation Alignment and Position: alignment normal Periorbital: periorbital findings normal Eyelids: eyelids normal Sclera: sclerae normal Pupils: PERRL EOM: EOM intact bilaterally Neck Neck: normal visual inspection, full ROM and no meningeal signs Resp Effort & Inspection: normal respiratory effort and able to speak in complete sentences Auscultation: clear to auscultation bilaterally Cardio Rate: regular rate Rhythm: regular rhythm Heart Sounds: S1 normal and S2 normal Neuro General: patient alert, patient awake, patient oriented x3, gait normal, tone normal, moves all extremities, CN's II-XI intact bilaterally and not confused Cognition: normal cognition Speech: speech normal Motor: muscle tone normal throughout, strength 5/5 throughout, no pronator drift, no movement abnormalities noted and no fasciculations Sensory Exam: no sensory deficits noted Coordination: [id number] test normal, Does not sway with eyes open, rapid alternating movement UE normal, rapid alternating movement LE normal and other (Abnormal Romberg test) Course Vital Signs Vital signs: Vital Signs Temperature 37.4 C 02/20/22 10:25 Pulse 89 02/20/22 10:25 Respiratory Rate 16 02/20/22 10:25 Blood Pressure 117/75 02/20/22 10:25 Pulse Oximetry 98 02/20/22 10:25 Temperature 36.8 C 02/20/22 13:34 Temperature Source Oral 02/20/22 13:34 Pulse 74 02/20/22 13:34 Respiratory Rate 16 02/20/22 13:34 Respiratory Effort 02/20/22 10:32 Blood Pressure 109/61 02/20/22 13:34 Blood Pressure Position Sitting 02/20/22 10:25 Pulse Oximetry 95 02/20/22 13:34 Oxygen Delivery Method Room Air 02/20/22 13:34 Oxygen Flow Rate 0 02/20/22 13:34 Pain Level 9 02/20/22 10:25 Comment 02/20/22 10:25 Lab/Test Results Lab/Test Results: Laboratory Tests Range/Units 02/20/22 02/20/22 02/20/22 10:53 11:05 11:05 WBC (4.4-10.8) 10^3/uL 9.61 RBC (4.36-5.78) 10^6/uL 4.96 Hgb (13.5-17.5) g/dL 14.7 Hct (40.0-50.0) % 43.2 MCV (80-95) fL 87.1 MCH (27.0-33.0) pg 29.6 MCHC (32.0-36.0) % 34.0 RDW (11.8-14.1) % 11.4 L Plt Count (130-400) 10^3/uL 174 MPV (8.0-11.0) fL 10.1 Immature Gran % 0.4 Neutrophils % 84.9 Lymphocytes % 6.9 Monocytes % 7.7 Eosinophils % 0.0 Basophils % 0.1 Nucleated RBC % (0.0-0.3) % 0.0 Absolute Neutrophils (1.2-6.7) 10^3/uL 8.16 H Absolute Lymphocytes (1.2-3.4) 10^3/uL 0.66 L Absolute Monocytes (0.1-0.8) 10^3/uL 0.74 Absolute Eosinophils (0.0-0.7) 10^3/uL 0.00 Absolute Basophils (0.0-0.2) 10^3/uL 0.01 ESR (0-15) mm/hr 4 PT (9.3-11.0) sec INR (0.9-1.1) APTT (21.0-27.5) sec Sodium (136-145) mmol/L 135 L Potassium (3.5-5.1) mmol/L 4.1 Chloride (98-107) mmol/L 100 Carbon Dioxide (21.0-32.0) mmol/L 29.0 Anion Gap (3-11) mmol/L 6.0 BUN (7-18) mg/dL 12 D Creatinine (0.70-1.30) mg/dL 1.1 Estimated GFR/1.73 m2 (mL/min/1.73m2) >= 60.00 Glucose (74-106) mg/dL 94 Calcium (8.5-10.1) mg/dL 8.8 Magnesium (1.8-2.4) mg/dL Total Bilirubin (0.2-1.0) mg/dL 1.4 H AST (15-37) U/L 12 L ALT (16-63) U/L 22 Alkaline Phosphatase (46-116) U/L 86 C-Reactive Protein (0.0-0.3) mg/dL Total Protein (6.4-8.2) g/dL 7.5 Albumin (3.4-5.0) g/dL 4.3 COVID-19 Source SARS-CoV-2 (PCR) (Negative) Range/Units 02/20/22 02/20/22 02/20/22 11:05 11:05 11:05 WBC (4.4-10.8) 10^3/uL RBC (4.36-5.78) 10^6/uL Hgb (13.5-17.5) g/dL Hct (40.0-50.0) % MCV (80-95) fL MCH (27.0-33.0) pg MCHC (32.0-36.0) % RDW (11.8-14.1) % Plt Count (130-400) 10^3/uL MPV (8.0-11.0) fL Immature Gran % Neutrophils % Lymphocytes % Monocytes % Eosinophils % Basophils % Nucleated RBC % (0.0-0.3) % Absolute Neutrophils (1.2-6.7) 10^3/uL Absolute Lymphocytes (1.2-3.4) 10^3/uL Absolute Monocytes (0.1-0.8) 10^3/uL Absolute Eosinophils (0.0-0.7) 10^3/uL Absolute Basophils (0.0-0.2) 10^3/uL ESR (0-15) mm/hr PT (9.3-11.0) sec 11.8 H INR (0.9-1.1) 1.2 H APTT (21.0-27.5) sec 25.9 Sodium (136-145) mmol/L Potassium (3.5-5.1) mmol/L Chloride (98-107) mmol/L Carbon Dioxide (21.0-32.0) mmol/L Anion Gap (3-11) mmol/L BUN (7-18) mg/dL Creatinine (0.70-1.30) mg/dL Estimated GFR/1.73 m2 (mL/min/1.73m2) Glucose (74-106) mg/dL Calcium (8.5-10.1) mg/dL Magnesium (1.8-2.4) mg/dL 1.7 L Total Bilirubin (0.2-1.0) mg/dL AST (15-37) U/L ALT (16-63) U/L Alkaline Phosphatase (46-116) U/L C-Reactive Protein (0.0-0.3) mg/dL 1.77 H Total Protein (6.4-8.2) g/dL Albumin (3.4-5.0) g/dL COVID-19 Source SARS-CoV-2 (PCR) (Negative) Range/Units 02/20/22 11:17 WBC (4.4-10.8) 10^3/uL RBC (4.36-5.78) 10^6/uL Hgb (13.5-17.5) g/dL Hct (40.0-50.0) % MCV (80-95) fL MCH (27.0-33.0) pg MCHC (32.0-36.0) % RDW (11.8-14.1) % Plt Count (130-400) 10^3/uL MPV (8.0-11.0) fL Immature Gran % Neutrophils % Lymphocytes % Monocytes % Eosinophils % Basophils % Nucleated RBC % (0.0-0.3) % Absolute Neutrophils (1.2-6.7) 10^3/uL Absolute Lymphocytes (1.2-3.4) 10^3/uL Absolute Monocytes (0.1-0.8) 10^3/uL Absolute Eosinophils (0.0-0.7) 10^3/uL Absolute Basophils (0.0-0.2) 10^3/uL ESR (0-15) mm/hr PT (9.3-11.0) sec INR (0.9-1.1) APTT (21.0-27.5) sec Sodium (136-145) mmol/L Potassium (3.5-5.1) mmol/L Chloride (98-107) mmol/L Carbon Dioxide (21.0-32.0) mmol/L Anion Gap (3-11) mmol/L BUN (7-18) mg/dL Creatinine (0.70-1.30) mg/dL Estimated GFR/1.73 m2 (mL/min/1.73m2) Glucose (74-106) mg/dL Calcium (8.5-10.1) mg/dL Magnesium (1.8-2.4) mg/dL Total Bilirubin (0.2-1.0) mg/dL AST (15-37) U/L ALT (16-63) U/L Alkaline Phosphatase (46-116) U/L C-Reactive Protein (0.0-0.3) mg/dL Total Protein (6.4-8.2) g/dL Albumin (3.4-5.0) g/dL COVID-19 Source Nasal/Nares SARS-CoV-2 (PCR) (Negative) Negative Sign Out Sign Out Data: Sign Out Comment: Patient pending neurology consult due to abnormal MRI findings. Patient in stable condition and is willing to wait for consults pending discharge. Last updated by Rolando Smallwood OYSTER GRADER at 02/20/22 16:11
[2022-02-20] MEDS: Gadoterate meglumine 20 ML VIAL IVP (15:13)
[2022-02-20] MEDS: Normal Saline Flush 10 ML SYR IVP (15:13)
--- NOTE | 2022-02-20 17:27 | NUR.NOTE ---
Addendum entered by Nancie Hernandez 02/20/22 18:06: Office #[phone] Original Note: Nursing Note: Shandra Casarez MD, [facility], [facility] [place] [phone]
== END 2022-02-20 19:25 | disposition home or self-care (01) ==
PROVIDERS: Nurse Practitioner Family; Emergency Provider Physician Assistant
DX: R51.9 Headache, unspecified (principal); R42 Dizziness and giddiness; G93.89 Other specified disorders of brain; Z20.822 Contact with and (suspected) exposure to COVID-19; R55 Syncope and collapse
CPT/HCPCS: 36415; 70553; 80053; 85652; 87635; 96374; 96375; 99284; 83735; 85025; 85610; 85730; 86140; J1885

== ENCOUNTER 2022-10-09 18:00 | Outpatient (REF) | payer OTHER, SELFPAY ==
[2022-10-12 11:50] LABS: COVID-19 RT-PCR UVMMC Result Negative (Negative)
== END 2022-10-09 18:01 | disposition home or self-care (01) ==
LOC: LBN 18:00
PROVIDERS: Visit Provider Physician Assistant Medical
DX: G43.909 Migraine, unspecified, not intractable, without status migrainosus (principal); Z20.822 Contact with and (suspected) exposure to COVID-19
CPT/HCPCS: U0003

== ENCOUNTER 2023-11-30 19:35 | Emergency (ER) | payer MEDICAID, SELFPAY ==
[2023-11-30 19:49] VITALS: BP 149/91; PULSE 94; RESP 16; TEMP 36.7; O2SAT 98
--- NOTE | 2023-11-30 20:00 | DI.CT_ITS ---
Exam(s) CT NECK W EXAM: CT NECK W CLINICAL HISTORY: right sided throat pain. TECHNIQUE: Imaging Protocol: Axial computed tomography images with coronal and sagittal reformatted images were created and reviewed. CONTRAST MATERIAL: Intravenous: Omnipaque 350 Contrast volume:100mL COMPARISON: CT CT BRAIN NECK CTA from 02/12/2022 FINDINGS: The examination is limited due to patient motion artifact. Orbits and orbital soft tissues: Within normal limits. Visualized paranasal sinuses: Within normal limits. Nasopharynx: Within normal limits. Oropharynx: Within normal limits. Hypopharynx: Within normal limits. Larynx: Within normal limits. Retropharyngeal space: Within normal limits. Parotids/submandibular: Within normal limits. Thyroid gland: Within normal limits. Lymphadenopathy: There is scattered lymph nodes seen along the level one to level three all measurin g less than 8 mm in short axis diameter which are physiologic in nature. Trachea: Within normal limits. Lung apices: Within normal limits. Bones: Within normal limits for the patient's age. Carotids/Jugular: Within normal limits. Soft tissues: Within normal limits. IMPRESSION: 1. There is mild enlargement of the adenoid and tonsillar tissue but no inflammatory changes are seen . No abnormal enhancement or abscess is identified. This may be reactive. 2. No cervical adenopathy or focal fluid collection is seen. 3. The visualized sinuses are clear. 4. No evidence of a cervical mass. RADIATION DOSE DELIVERED: 611.01mGy.cm Total DLP 611.01mGy.cm Total DLP DATA REPOSITORY: All CT scans at this facility are submitted to the National Radiology Data Registry (NRDR) Dose Index Registry (DIR) with the [employer] ([employer]). RADIATION OPTIMIZATION: All CT scans at this facility use at least one of these dose optimization te chniques: automated exposure control; mA and/or kV adjustment per patient size (includes targeted exa ms where dose is matched to clinical indication); or iterative reconstruction.
[2023-11-30] MEDS: Dexamethasone 10 MG/ML VIAL IVP (20:44)
[2023-11-30] MEDS: Ketorolac 15 MG/ML VIAL IVP (20:44)
[2023-11-30] MEDS: Omnipaque 350 MG/ML 100 ML BTL IJ (20:50)
[2023-11-30] MEDS: Normal Saline - Diluent 50 ML VIAL IJ (20:51)
[2023-11-30] MEDS: Normal Saline 1,000 ML 1000 ML IV (20:58)
[2023-11-30 21:07] LABS: Abs Immature Grans 0.03 10^3/uL (0.0-0.06); Absolute Basophil Count 0.05 10^3/uL (0.0-0.2); Absolute Eosinophil Count 0.05 10^3/uL (0.0-0.7); Absolute Lymphocyte Count 0.99 10^3/uL (1.2-3.4); Absolute Monocyte Count 0.83 10^3/uL (0.1-0.8); Absolute Neutrophil Count 8.14 10^3/uL (1.2-6.7); Basophils % 0.5; Eosinophils % 0.5; HCT 42.5 % (40.0-50.0); HGB 14.9 g/dL (13.5-17.5); Immature Grans % 0.3; Lymphocytes % 9.8; MCH 30.2 pg (27.0-33.0); MCHC 35.1 % (32.0-36.0); MCV 86 fL (80-95); MPV 10.5 fL (8.0-11.0); Monocytes % 8.2; Neutrophils % 80.7; Platelet Count 198 10^3/uL (130-400); RBC 4.94 10^6/uL (4.36-5.78); RDW 11.9 % (11.8-14.1); RDW-SD 37.3 fL; WBC 10.09 10^3/uL (4.4-10.8)
[2023-11-30 21:23] VITALS: BP 124/72; PULSE 81; RESP 16; TEMP 36.8; O2SAT 98
[2023-11-30 21:48] LABS: ALT 29 U/L (16-63); AST 22 U/L (15-37); Albumin 3.7 g/dL (3.4-5.0); Alkaline Phosphatase 91 U/L (46-116); Anion Gap 7.1 mmol/L (3-11); BUN 21 mg/dL (7-18); Bilirubin, Total 0.8 mg/dL (0.2-1.0); CO2 27.9 mmol/L (21.0-32.0); Calcium 8.6 mg/dL (8.5-10.1); Chloride 103 mmol/L (98-107); Estimated GFR 108.46 (mL/min/1.73m2); Glucose 97 mg/dL (74-106); Magnesium 1.7 mg/dL (1.8-2.4); Potassium 4.5 mmol/L (3.5-5.1); Sodium 138 mmol/L (136-145)
--- NOTE | 2023-11-30 21:50 | DI.VRAD_ITS ---
PROCEDURE INFORMATION: Exam: CT Neck With Contrast Exam date and time: 11/30/2023 8:46 PM Age: 23 years old Clinical indication: Patient HX: R side throat pain down neck TECHNIQUE: Imaging protocol: Computed tomography of the neck with contrast. COMPARISON: CT BRAIN NECK CTA 02/12/2022 4:40 PM FINDINGS: Brain: Visualized intracranial contents demonstrate no gross abnormality. Orbital cavities: Visualized orbital contents are normal. Mastoid air cells: The mastoid air cells are clear. Paranasal sinuses: The visualized paranasal sinuses are clear. Pharynx: The parapharyngeal spaces are unremarkable. Question mild adenoid tonsillar hypertrophy in the nasopharynx which does not cause nasopharyngeal obstruction, measuring 18 mm maximum thickness from the skull base. Mild symmetrical prominence of the palatine tonsils measuring 2 cm transverse diameter, possibly reactive enlargement, with no surrounding inflammatory changes or abnormal enhancement to specifically suggest tonsillitis. No tonsillar abscess. The hypopharynx is unremarkable. Larynx: Normal epiglottis. Visualized larynx is unremarkable. Prevertebral and retropharyngeal spaces: Unremarkable. Salivary glands: The parotid and submandibular glands are unremarkable. Thyroid: The visualized thyroid gland is unremarkable. Lymph nodes: No adenopathy. Trachea: The visualized trachea is unremarkable. Lungs: The visualized pulmonary apices are clear. Esophagus: The visualized proximal esophagus is unremarkable. Bones/joints: No fractures or other bone lesions are identified. TMJs are well aligned. The infratemporal fossae and oceanographer assistant spaces are unremarkable. Vasculature: No gross vascular abnormalities are appreciated. Soft tissues: No evidence of cellulitis. No hematoma. No abscess. Other findings: No foreign body. IMPRESSION: 1. No definite acute findings. 2. Borderline enlargement of the bilateral palatine tonsils and adenoid tonsils, without adjacent inflammatory changes or abnormal enhancement, suggesting mild reactive enlargement versus mild tonsillitis. 3. No abscess or cellulitis. No adenopathy. Dictated and Authenticated by: Shon Reynaga MD. Ordering:JOLYNN Marshall MD
--- NOTE | 2023-11-30 22:07 | W.ED.GENAD ---
HPI General Mode of arrival: ambulatory. Date/Time Provider Initiated Documentation: 11/30/23 19:44. Limitations to Documentation: no limitations. Information obtained by: patient and RN notes reviewed. History of Present Illness 23 year old M presents to the emergency department with the chief complaint of Right-sided sore throat, described as moderate and severe, and is localized to the neck. Patient started experiencing this day(s) (4) and it has been constant. No relieving factors improve symptom(s), Eating worsens symptoms (Or swallowing) . Patient did receive the following treatments prior to arrival, NSAID Related Data Home Medications Medication Instructions Recorded Confirmed amoxicillin 875 mg tablet 875 mg PO BID #20 tabs 11/30/23 Previous Rx's Medication Instructions Recorded amoxicillin 875 mg tablet 875 mg PO BID #20 tabs 11/30/23 Allergies Allergy/AdvReac Type Severity Reaction Status Date / Time No Known Allergies Allergy Unverified 11/30/23 19:49 General Stated Complaint: Orthopedic LARRY: 4 Review of Systems Constitutional Constitutional: Denies chills, Denies fever(s), Reports malaise and Reports poor appetite ENT Ears, Nose, Mouth, and Throat: Reports as per HPI, Denies nasal congestion, Reports neck mass, Reports neck pain, Denies sinus pain, Reports sore throat and Reports throat swelling Cardiovascular Cardiovascular: Denies chest pain and Denies dyspnea Respiratory Respiratory: Denies cough and Denies dyspnea Musculoskeletal Musculoskeletal: Reports neck pain Integumentary/Breasts Skin/Breast: Denies rash Allergic/Immunologic Allergic/Immunologic: Reports throat swelling Exam Const General: cooperative, healthy appearing, comfortable, no acute distress and not ill appearing Orientation: alert, awake and oriented x3 HENMT Head: normal to inspection and normocephalic Ears: hearing grossly normal bilaterally, external ears normal, TM's normal bilaterally and mastoids normal General nose exam: external nose normal and nares normal Face and sinus: normal facial exam and sinuses nontender Mouth: oral mucosae normal, lip normal, tongue normal, no audible dysphonia, no drooling and no trismus Throat: uvula midline, abnormal tonsil bilaterally erythema, exudates and hypertrophy 2+ and no peritonsillar masses Neck Neck: normal visual inspection, full ROM, no lymphadenopathy and no meningeal signs Resp Effort & Inspection: normal respiratory effort, able to speak in complete sentences and no stridor Auscultation: clear to auscultation bilaterally Cardio Rate: regular rate Rhythm: regular rhythm Heart Sounds: S1 normal and S2 normal Skin General skin exam: no rashes or lesions noted Course Vital Signs Vital signs: Vital Signs Temperature 36.7 C 11/30/23 19:49 Pulse 94 H 11/30/23 19:49 Respiratory Rate 16 11/30/23 19:49 Blood Pressure 149/91 H 11/30/23 19:49 Pulse Oximetry 98 11/30/23 19:49 Temperature 36.8 C 11/30/23 21:23 Temperature Source Temporal Artery Scan 11/30/23 21:23 Pulse 81 11/30/23 21:23 Respiratory Rate 16 11/30/23 21:23 Respiratory Effort Normal, Non-Labored 11/30/23 19:52 Blood Pressure 124/72 11/30/23 21:23 Blood Pressure Position Sitting 11/30/23 19:49 Pulse Oximetry 98 11/30/23 21:23 Oxygen Delivery Method Room Air 11/30/23 21:23 Oxygen Flow Rate 0 11/30/23 21:23 Pain Level 6 11/30/23 21:23 Lab/Test Results Lab/Test Results: 11/30/23 20:50 Tonsil - Right Group A Streptococcus Culture - Pending Laboratory Tests Range/Units 11/30/23 11/30/23 20:50 21:27 WBC (4.4-10.8) 10^3/uL 10.09 RBC (4.36-5.78) 10^6/uL 4.94 Hgb (13.5-17.5) g/dL 14.9 Hct (40.0-50.0) % 42.5 MCV (80-95) fL 86 MCH (27.0-33.0) pg 30.2 MCHC (32.0-36.0) % 35.1 RDW (11.8-14.1) % 11.9 Plt Count (130-400) 10^3/uL 198 MPV (8.0-11.0) fL 10.5 Immature Gran % 0.3 Neutrophils % 80.7 Lymphocytes % 9.8 Monocytes % 8.2 Eosinophils % 0.5 Basophils % 0.5 Nucleated RBC % (0.0-0.3) % 0.0 Absolute Neutrophils (1.2-6.7) 10^3/uL 8.14 H Absolute Lymphocytes (1.2-3.4) 10^3/uL 0.99 L Absolute Monocytes (0.1-0.8) 10^3/uL 0.83 H Absolute Eosinophils (0.0-0.7) 10^3/uL 0.05 Absolute Basophils (0.0-0.2) 10^3/uL 0.05 Sodium Cancelled 138 Potassium Cancelled 4.5 Chloride Cancelled 103 Carbon Dioxide Cancelled 27.9 Anion Gap Cancelled 7.1 BUN Cancelled 21 H Creatinine Cancelled 1.0 Est GFR (CKD-EPI 2020) Cancelled 108.46 Glucose Cancelled 97 Calcium Cancelled 8.6 Magnesium Cancelled 1.7 L Total Bilirubin Cancelled 0.8 AST Cancelled 22 ALT Cancelled 29 Alkaline Phosphatase Cancelled 91 Total Protein Cancelled 7.0 Albumin Cancelled 3.7 POC Strep Test-CLAUDIA(Rapid) Start: 11/30/23 20:04 Freq: .Rapid Strep Test Status: Active Protocol: Document 11/30/23 21:10 DEX (Rec: 11/30/23 21:10 DEX [id number]) Strep test-CLAUDIA(Rapid)-POC POC-Strep test-CLAUDIA (Rapid) Negative POC-Strep test-CLAUDIA (Rapid) Negative Medical Decision Making Patient presenting to the emergency department for chief complaint of right-sided sore throat for 4 days. Patient states pain and discomfort with swallowing but is able to maintain secretions, denies fever or chills, denies all other symptoms. Patient denies any injury or trauma. Patient has been attempting to control symptoms with ibuprofen but given lack of improvement is presenting for assessment. Patient has no other contributing past medical history, no sick contacts, no concerning sexual behavior. Physical exam shows bilateral tonsillary hypertrophy, erythema, and exudates. There is anterior cervical lymphadenopathy on the right otherwise full range of motion, no findings suggestive of meningitis, otherwise unremarkable HEENT exam. Patient is able to speak in full sentences and manage secretions. While physical exam shows bilateral symptoms given that patient is stating significant worse symptoms on the right and very painful swallowing will perform CT imaging to rule out peritonsillar or retropharyngeal abscess or other emergent findings. Pending results will give patient ketorolac and Decadron. Reviewed patient's labs and patient's WBC count is upper limits of normal but of notation he does have signs of left shift along with absolute neutrophil and monocyte count elevated and low lymphocytes. CMP is nondiagnostic except for slightly low magnesium otherwise nondiagnostic labs. Patient is negative for rapid strep testing but culture will be sent. Will give p.o. magnesium after CT results CT results show borderline enlargement of the bilateral palatine tonsils and adenoid tonsils, without adjacent inflammatory changes or abnormal enhancement, suggesting mild reactive enlargement versus mild tonsillitis. Given no other concerning findings no life-threatening airway infection I do feel that patient is safe for outpatient disposition. Given visible exudates, left shift, and significant discomfort will place patient on amoxicillin pending strep culture. After discussion of diagnosis and plan of care patient has no further needs, questions, or concerns and states clear understanding to return to the emergency department for any worsening symptoms. This documentation was generated using [facility] dictation system, please disregard any oddities of phrase or misspellings. Imaging Data Radiologic Study: Imaging: CT Scan Radiologist's impression: Exam(s) PROCEDURE INFORMATION: Exam: CT Neck With Contrast Exam date and time: 11/30/2023 8:46 PM Age: 23 years old Clinical indication: Patient HX: R side throat pain down neck TECHNIQUE: Imaging protocol: Computed tomography of the neck with contrast. COMPARISON: CT BRAIN NECK CTA 02/12/2022 4:40 PM FINDINGS: Brain: Visualized intracranial contents demonstrate no gross abnormality. Orbital cavities: Visualized orbital contents are normal. Mastoid air cells: The mastoid air cells are clear. Paranasal sinuses: The visualized paranasal sinuses are clear. Pharynx: The parapharyngeal spaces are unremarkable. Question mild adenoid tonsillar hypertrophy in the nasopharynx which does not cause nasopharyngeal obstruction, measuring 18 mm maximum thickness from the skull base. Mild symmetrical prominence of the palatine tonsils measuring 2 cm transverse diameter, possibly reactive enlargement, with no surrounding inflammatory changes or abnormal enhancement to specifically suggest tonsillitis. No tonsillar abscess. The hypopharynx is unremarkable. Larynx: Normal epiglottis. Visualized larynx is unremarkable. Prevertebral and retropharyngeal spaces: Unremarkable. Salivary glands: The parotid and submandibular glands are unremarkable. Thyroid: The visualized thyroid gland is unremarkable. Lymph nodes: No adenopathy. Trachea: The visualized trachea is unremarkable. Lungs: The visualized pulmonary apices are clear. Esophagus: The visualized proximal esophagus is unremarkable. Bones/joints: No fractures or other bone lesions are identified. TMJs are well aligned. The infratemporal fossae and medication manager spaces are unremarkable. Vasculature: No gross vascular abnormalities are appreciated. Soft tissues: No evidence of cellulitis. No hematoma. No abscess. Other findings: No foreign body. IMPRESSION: 1. No definite acute findings. 2. Borderline enlargement of the bilateral palatine tonsils and adenoid tonsils, without adjacent inflammatory changes or abnormal enhancement, suggesting mild reactive enlargement versus mild tonsillitis. 3. No abscess or cellulitis. No adenopathy. Dictated and Authenticated by: Shon Reynaga MD. Lab Data Lab results reviewed: Yes I reviewed the patient's lab results. Quality:SDOH Health Related Social Needs: No Data to Display PFSH All Active Problems Pharyngitis (Acute) Social History Smoking/Tobacco Use Status: Never Smoking risk assessment performed?: Yes Alcohol Intake: never Drug use: Never Substance use type: does not use Housing: house Do you feel safe at home: Yes Do you feel safe in your relationship?: Yes Discharge Plan Disposition Patient Disposition: Home Discharge Details Clinical Impression: Pharyngitis Primary Care Provider: Unknown,Unknown ED Provider: Rolando Smallwood Home Meds and New Rx's Prescriptions: New amoxicillin 875 mg tablet 875 mg PO BID Qty: 20 0RF Discharge Instructions Instructions: Pharyngitis (ED) Additional Instructions: Continue to use [id number] ibuprofen as needed for any fever or discomfort. Please monitor symptoms and return immediately for any significant worsening of symptoms or difficulty breathing. Please take antibiotics as prescribed and for the full course of medication. Referrals: Primary Care Provider [Outside] - 5 days (If not improving) Discharge Data Discharge Date/Time-TO BE ENTERED AT DEPARTURE: 11/30/23 22:28
[2023-11-30] MEDS: Magnesium Oxide 400 MG TAB PO (22:25)
[2023-11-30] MEDS: Amoxicillin 875 MG TAB PO (22:25)
== END 2023-11-30 22:28 | disposition home or self-care (01) ==
PROVIDERS: Emergency Provider Nurse Practitioner Family
DX: J02.9 Acute pharyngitis, unspecified (principal)
CPT/HCPCS: 70491; 80053; 87880; 96361; 96374; 96375; 99285; 83735; 85025; 87081; 99284; J1100; J1885; J3490

== ENCOUNTER 2023-12-02 13:25 | Emergency (ER) | payer MEDICAID, SELFPAY ==
[2023-12-02 13:30] VITALS: BP 133/81; PULSE 74; RESP 18; O2SAT 96
--- NOTE | 2023-12-02 13:44 | W.ED.GENAD ---
HPI General Date/Time Provider Initiated Documentation: 12/02/23 13:35. HPI Narrative: 23 year-old male presents to ED today by POV/ambulating with a chief complaint of continued throat pain, seen here 11/30, with negative CT, given amoxicillin that he just picked up and started today around 1200. Quality described as continued throat pain, now radiating up his lutheran, no radiation to inability to swallow, vocal changes, excessive drooling, high fever, cough, shortness of breath. Severity is described as severe. Palliating factors include improper dosing of one dose 1000mg ibuprofen. Provoking factors include nothing specific. Patient not anticoagulated. Related Data Home Medications Medication Instructions Recorded Confirmed amoxicillin 875 mg tablet 875 mg PO BID #20 tabs 11/30/23 12/02/23 amoxicillin 875 mg-potassium 1 tab PO BID pharyngitis 10 days 12/02/23 clavulanate 125 mg tablet #20 tabs Previous Rx's Medication Instructions Recorded amoxicillin 875 mg tablet 875 mg PO BID #20 tabs 11/30/23 amoxicillin 875 mg-potassium 1 tab PO BID pharyngitis 10 days 12/02/23 clavulanate 125 mg tablet #20 tabs Allergies Allergy/AdvReac Type Severity Reaction Status Date / Time No Known Allergies Allergy Unverified 12/02/23 13:32 General Stated Complaint: Sorethroat LARRY: 4 Review of Systems All systems reviewed & are unremarkable except as noted in HPI and below Exam Narrative Exam Narrative: GENERAL APPEARANCE: Well-nourished, non-toxic, awake and alert, atraumatic, no acute distress. SKIN: Warm, pink, dry, intact, without rashes/lesions/ulcerations. HEAD: Normocephalic, atraumatic, normal hair distribution for gender/age. EYES: Pupils PERRLA, EOMs intact without nystagmus, normal conjunctiva, no exudates on lids/lashes. ENT: Nares patent, no circumoral cyanosis, no facial swelling, uvula midline, R tonsillar erythema & exudate, L cervical lymphadenopathy, no trismus, managing secretions well NECK: Supple, trachea midline, painless cervical ROM. LUNGS/CHEST: Non-labored respirations, normal A/P diameter, symmetrical expansion, no chest wall deformity HEART (CV/PV): No peripheral edema, no JVD. ABDOMEN: Soft, non-distended, no guarding. MSK: Normal ROM, no swelling/deformity to bilateral UEs or LEs, moving all extremities without weakness, no cyanosis, spine midline without tenderness, normal curvature. NEURO: Mental Status AAOx4 - alert to person, place, time, events No facial droop, no forehead involvement. Motor: No focal weakness - strength 5/5 in bilateral UEs and LEs, proximal and distal, symmetric. Sensory: sensation intact to light touch globally. Gait normal: patient ambulated without ataxia into ED room. PSYCH: euthymic, cooperative, pleasant, appropriate speech Course Vital Signs Vital signs: Vital Signs Pulse 74 12/02/23 13:30 Respiratory Rate 18 12/02/23 13:30 Blood Pressure 133/81 12/02/23 13:30 Pulse Oximetry 96 12/02/23 13:30 Pulse 74 12/02/23 13:30 Respiratory Rate 18 12/02/23 13:30 Respiratory Effort Normal, Non-Labored 12/02/23 13:32 Blood Pressure 133/81 12/02/23 13:30 Blood Pressure Position Sitting 12/02/23 13:30 Pulse Oximetry 96 12/02/23 13:30 Oxygen Delivery Method Room Air 12/02/23 13:30 Oxygen Flow Rate 0 12/02/23 13:30 Pain Level 9 12/02/23 13:30 Medical Decision Making This dictation utilizes [id number] dictation software and may contain unedited grammatical errors. 23 y/o M presents to ED today with a chief complaint of continued sore throat pain. Patient had waited days to start antibiotics, improper dosing regimen of OTC analgesics. Denies trismus, vocal changes, speaking clearing, managing secretions- patients' strep swab did come back negative. Patients' medical history: negative, otherwise healthy. Family and social history: noncontributory. Pertinent exam findings / vital signs include ENT: Nares patent, no circumoral cyanosis, no facial swelling, uvula midline, R tonsillar erythema & exudate, L cervical lymphadenopathy, no trismus, managing secretions well. Differential / pathologies of concern include Bacterial pharyngitis, INSULATOR HELPER. Diagnostic studies of: -none, discussed watchful waiting for ABX to re-CT scan, patient agrees. Interventions of: -upgraded to Augmentin for better coverage of atypicals beyond simple strep. ED Course/Assessment/Plan: 23-year-old healthy male speaking in clear sentences presents after 1 dose of amoxicillin after being treated for empiric strep pharyngitis days ago, his strep swab is negative but I am suspicious for a bacterial pharyngitis as his symptoms are unilateral and there is exudate on the tonsil, he has no overt signs of peritonsillar abscess at this time but he did have a negative CT scan days ago. I counseled him on therapeutic dosing of Tylenol and ibuprofen as well as upgraded his antibiotic to Augmentin sent to [facility] and advised on conservative management like salt water gargles, tea with honey and other homeopathic remedies. Findings not consistent with INSULATOR HELPER, airway compromise. Disposition of Pharyngitis. Patient verbalized understanding of the plan and return to ED criteria and engaged in shared decision making. Medical Records Medical records reviewed: Yes I reviewed the patient's medical records. Quality:SDOH Health Related Social Needs: No Data to Display PFSH All Active Problems (Updated 12/02/23 @ 13:59 by CHRISTAL Eastman) Pharyngitis (Acute) Social History Smoking/Tobacco Use Status: Never Smoking risk assessment performed?: Yes Alcohol Intake: never Drug use: Never Substance use type: does not use Housing: house Do you feel safe at home: Yes Do you feel safe in your relationship?: Yes Discharge Plan Disposition Patient Disposition: Home Condition: Stable Discharge Details Clinical Impression: Pharyngitis Primary Care Provider: Unknown,Unknown ED Provider: Dago Doyle Meds and New Rx's Prescriptions: New amoxicillin-pot clavulanate 875-125 mg tablet 1 tab PO BID 10 Days Qty: 20 0RF No Action amoxicillin 875 mg tablet 875 mg PO BID Qty: 20 0RF Discharge Instructions Instructions: Pharyngitis (ED) Additional Instructions: You were seen in the emergency department for your continued throat pain, you have a unilateral pharyngitis, I suspect this is a bacterial infection despite your negative strep culture, I have upgraded your antibiotic to Augmentin sent to [facility] in [place]. Please add in conservative treatments like salt water gargles with warm salt water 3 times per day, use tea with honey or other throat coat medicinal teas to help with symptomatic relief. Please use therapeutic dosing of Tylenol (acetamenophen) & Advil (ibuprofen) in an alternating fashion as follows: Take 1000mg of Tylenol every 6 hours without missing doses- that is 4 times per day. Penitentiary in between the Tylenol dosings, take 400-600mg of Advil also on a 6 hour schedule, that is also 4 times per day. The daily maximum dosing of Tylenol is 4000mg, and the daily maximum dosing of Advil is 2400mg. This is safe to do for weeks. Please note that some common cold medications & prescription pain medications may contain acetamenophen and you need to read OTC drug labels and factor that in to maximum daily dosings. The antibiotic should begin to be significantly effective by day 3 and any viral pharyngitis should clear within 7 to 10 days naturally. If you are worsening despite treatment especially with severe vocal changes and losing her voice and inability to open your jaw and difficulty managing your own drool please return to the ER at once for re-evaluation.
== END 2023-12-02 14:05 | disposition home or self-care (01) ==
PROVIDERS: Emergency Provider Physician Assistant
DX: J02.9 Acute pharyngitis, unspecified (principal)
CPT/HCPCS: 99283

== ENCOUNTER 2024-02-01 14:31 | Emergency (ER) | payer MEDICAID, SELFPAY ==
[2024-02-01 14:36] VITALS: BP 119/78; PULSE 72; RESP 14; TEMP 37.1; O2SAT 97
[2024-02-01 14:43] VITALS: BP 119/78; PULSE 72; RESP 14; TEMP 37.1; O2SAT 97
[2024-02-01] MEDS: Dexamethasone 10 MG/ML VIAL IM (15:17)
[2024-02-01 15:24] VITALS: BP 119/78; PULSE 72; RESP 14; TEMP 37.1; O2SAT 97
--- NOTE | 2024-02-01 19:49 | W.ED.GENAD ---
Discharge Plan Disposition Patient Disposition: Home Discharge Details Clinical Impression: Acute sore throat, Pharyngitis Primary Care Provider: Unknown,Unknown ED Provider: Barbara Jurado Home Meds and New Rx's Prescriptions: No Action No Known Home Meds Discharge Instructions Instructions: Pharyngitis (ED) Additional Instructions: you are being treated for presumed strep throat infection and were given steroids and antibiotics in the ED. you won't need additional antibiotics continue supportive care with motrin, tylenol, salt water gargles, return with worsening symptoms Discharge Data Discharge Date/Time-TO BE ENTERED AT DEPARTURE: 02/01/24 15:33 HPI General Date/Time Provider Initiated Documentation: 02/01/24 14:48. Limitations to Documentation: no limitations. Information obtained by: patient. HPI Narrative: 23-year-old gentleman without significant past medical history presents for evaluation of sore throat. Reports onset of symptoms 2 to 3 days ago. Pain worse with swallowing. No voice changes, no difficulty opening throat. No other associated symptoms of a URI. Denies any known fever. Related Data Home Medications Medication Instructions Recorded Confirmed Unknown [No Known Home Meds] 02/01/24 02/01/24 Allergies Allergy/AdvReac Type Severity Reaction Status Date / Time No Known Allergies Allergy Unverified 02/01/24 14:42 General Stated Complaint: Sorethroat LARRY: 4 Exam Narrative Exam Narrative: Review of Systems: All systems reviewed & are unremarkable except as noted in HPI and below Well-developed, no acute distress NCAT PERRL, normal conjunctiva Tonsils enlarged, erythematous, exudates noted + Cervical adenopathy RRR Unlabored respiratory effort Nondistended abdomen Extremities w/o deformity, no cyanosis, no edema No rashes or lesions. no focal neurologic deficits Appropriate mood and affect Course Vital Signs Vital signs: Vital Signs Temperature 37.1 C 02/01/24 14:36 Pulse 72 02/01/24 14:36 Respiratory Rate 14 02/01/24 14:36 Blood Pressure 119/78 02/01/24 14:36 Pulse Oximetry 97 02/01/24 14:36 Temperature 37.1 C 02/01/24 15:24 Temperature Source Skin 02/01/24 14:43 Pulse 72 02/01/24 15:24 Respiratory Rate 14 02/01/24 15:24 Respiratory Effort Normal 02/01/24 14:43 Blood Pressure 119/78 02/01/24 15:24 Blood Pressure Position Sitting 02/01/24 14:43 Pulse Oximetry 97 02/01/24 15:24 Oxygen Delivery Method Room Air 02/01/24 14:43 Oxygen Flow Rate 0 02/01/24 14:43 Pain Level 7 02/01/24 14:43 Lab/Test Results Lab/Test Results: 02/01/24 14:45 Pharynx Group A Streptococcus Culture - Pending POC Strep Test-CLAUDIA(Rapid) Start: 02/01/24 14:52 Freq: .Rapid Strep Test Status: Discharge Protocol: Document 02/01/24 14:55 CB (Rec: 02/01/24 14:55 [facility]-[id number]) Strep test-CLAUDIA(Rapid)-POC POC-Strep test-CLAUDIA (Rapid) Negative POC-Strep test-CLAUDIA (Rapid) Negative Medical Decision Making Emergent evaluation of sore throat. Patient does not have fever. He does have a concerning oropharynx exam with cervical adenopathy that is supportive of a diagnosis of strep infection. His [id number] testing is negative. A culture has been sent. Will treat empirically. A dose of dexamethasone and a dose of Bicillin were given in the emergency department. Discussed [employer] symptoms and the patient should return if these develop. Otherwise recommend follow-up with PCP. Medical Records Medical records reviewed: Yes I reviewed the patient's medical records. Lab Data Lab results reviewed: Yes I reviewed the patient's lab results. Quality:SDOH Health Related Social Needs: No Data to Display PFSH All Active Problems Pharyngitis (Acute) Acute sore throat (Acute) Social History Smoking/Tobacco Use Status: Never Smoking risk assessment performed?: Yes Alcohol Intake: never Drug use: Never Substance use type: does not use Housing: house Do you feel safe at home: Yes Do you feel safe in your relationship?: Yes
== END 2024-02-01 15:33 | disposition home or self-care (01) ==
PROVIDERS: Emergency Provider Emergency Medicine
DX: J02.9 Acute pharyngitis, unspecified (principal)
CPT/HCPCS: 87880; 99283; 87081; J0561; J1100

== ENCOUNTER 2024-08-04 17:37 | Emergency (ER) | payer MEDICAID, SELFPAY ==
[2024-08-04 17:40] VITALS: BP 130/72; PULSE 76; RESP 15; TEMP 37.2; O2SAT 96
--- NOTE | 2024-08-04 19:10 | W.ED.GENAD ---
Discharge Plan Disposition Patient Disposition: Home Condition: Stable Discharge Details Clinical Impression: Neck pain on left side, Acute pain of left knee, Muscle strain Primary Care Provider: None,None ED Provider: Rhina Fung Home Meds and New Rx's Prescriptions: No Action No Known Home Meds Discharge Instructions Instructions: Acute Pain, Adult (DC), Neck Pain Exercises Additional Instructions: You were seen in the emergency department today for evaluation of neck pain and knee pain. In our department you have a full physical examination performed that was most concerning for sprain/strain. We talked about multimodal pain management to include [place] balm (capsaicin/lidocaine), Tylenol and ibuprofen, as well as heat and massage. You were referred to establish with a primary care provider and should follow-up if your symptoms are not improving in the next week. Thank you for allowing us to be part of your care. HPI General Mode of arrival: ambulatory. Date/Time Provider Initiated Documentation: 08/04/24 17:38. Limitations to Documentation: no limitations. Information obtained by: patient and old records reviewed. HPI Narrative: HPI: This is a 23-year-old male patient, previously healthy, presenting for evaluation of neck pain and knee pain. The patient reports that he was in his normal state of health until a few hours ago, when he noted stiffness and pain in the left side of his neck radiating down into his shoulder. He did not experience discrete injury, strain, or abnormal movements that started this pain. Trialed 1000 mg of ibuprofen in the home environment with some improvement. The patient also states that for the last few days he has noted a tightness and pain in his left knee, located at the lateral aspect. The patient is very active, states that he has noted this pain primarily with pigeon pose and external rotation as well as when climbing stairs. No discrete injury to the knee, no instability, alteration in gait. The patient states that he has otherwise been in his normal state of health. He has not sustained trauma or fall, has not had fevers or chills, denies new numbness, tingling, or weakness of any part of his body. Uses a muscle gun but has not tried that today. Exam: Gen: Awake and alert, in no apparent distress HEENT: Non-icteric sclera Neck: Supple, tenderness to palpation of the left sided paraspinal muscles of the cervical spine as well as over the trapezius with no palpable muscular spasms. No overlying skin changes noted, range of motion preserved though slightly tender Lungs: No apparent respiratory distress, normal respiratory effort. CV: Appears well perfused, strong distal pulses Abdomen: Non-distended MSK: Moves 4 extremities without apparent limitation in ROM. The left knee is without effusion, point tenderness to palpation over the medial or lateral joint line. He has full range of motion with reproduction of his lateral knee pain at the extreme of flexion. He has no laxity with stress of his MCL or LCL, Rahul's with a firm endpoint. He does have tenderness to palpation at the distal aspect of his IT band at the point of insertion. Skin: Visualized skin without rashes, cyanosis. Neuro: Normal Gait, no obvious focal deficits or facial asymmetry. Speaks in full, clear sentences. Psych: Appropriate for situation. MDM: This is a 23-year-old male patient presenting for evaluation of knee pain and neck pain. My differential includes but is not limited to sprain, strain, I am less concerned for fracture dislocation in this patient who did not sustain specific trauma. No evidence of neurovascular derangement, spinal cord injury. No overlying skin changes, warmth, redness to suggest septic joint or inflammatory arthropathy. I had a shared decision-making conversation with the patient regarding his complaints, and at this time I feel that the clinical utility of x-ray imaging would be extremely limited. I did psychologist counseling the patient on safe dosing of [id number] medications and counseled him to utilize Tylenol and ibuprofen for management of his pain. I encouraged heat, massage, and recommended topical therapies such as capsaicin or lidocaine. I provided the patient with a referral to primary care establishment ED Course: At this time, the patient has had a full medical evaluation and is safe for discharge to home. They are hemodynamically stable, ambulatory, and tolerating PO. They are understanding of the follow-up plan and return precautions. They left our facility without incident. Rhina Fung MD Related Data Home Medications ?Medication ?Instructions ?Recorded ?Confirmed Unknown [No Known Home Meds] 02/01/24 02/01/24 Allergies Allergy/AdvReac Type Severity Reaction Status Date / Time No Known Allergies Allergy Unverified 02/01/24 14:42 General Stated Complaint: Nk/Back Pain LARRY: 4 Course Vital Signs Vital signs: Vital Signs Temperature 37.2 C 08/04/24 17:40 Pulse 76 08/04/24 17:40 Respiratory Rate 15 08/04/24 17:40 Blood Pressure 130/72 08/04/24 17:40 Pulse Oximetry 96 08/04/24 17:40 Temperature 37.2 C 08/04/24 17:40 Pulse 76 08/04/24 17:40 Respiratory Rate 15 08/04/24 17:40 Blood Pressure 130/72 08/04/24 17:40 Blood Pressure Position Sitting 08/04/24 17:40 Pulse Oximetry 96 08/04/24 17:40 Oxygen Delivery Method Room Air 08/04/24 17:40 Oxygen Flow Rate 0 08/04/24 17:40 Medical Decision Making Quality:SDOH Health Related Social Needs: No Data to Display PFSH All Active Problems (Updated 08/04/24 @ 19:11 by Rhina Fung MD) Muscle strain (Acute) Acute pain of left knee (Acute) Neck pain on left side (Acute) Social History Smoking/Tobacco Use Status: Never Smoking risk assessment performed?: Yes Alcohol Intake: never Drug use: Never Substance use type: does not use Housing: house Do you feel safe at home: Yes Do you feel safe in your relationship?: Yes
== END 2024-08-04 19:18 | disposition home or self-care (01) ==
PROVIDERS: Emergency Provider Emergency Medicine
DX: M54.2 Cervicalgia (principal); M25.562 Pain in left knee
CPT/HCPCS: 99282; 99283

== ENCOUNTER 2025-01-05 09:33 | Emergency (ER) | payer MEDICAID, SELFPAY ==
[2025-01-05 09:35] VITALS: BP 138/70; PULSE 77; RESP 15; TEMP 36.8; O2SAT 97
--- NOTE | 2025-01-05 10:05 | DI.RAD_ITS ---
Exam(s) XR WRIST LT COMPLETE EXAM: XR WRIST LT COMPLETE CLINICAL HISTORY: left wrist pain over ulnar aspect, no trauma. TECHNIQUE: 2D digital imaging was performed. COMPARISON: No exams were available for comparison FINDINGS: 3 views No evidence of acute fracture nor dislocation nor significant ulnar variance. Bone density is normal . No osseous lesions nor erosions. No degenerative changes. No abnormal soft tissue findings. IMPRESSION: No significant radiographic findings in the wrist. DATA REPOSITORY: RADIATION DOSE DELIVERED:
--- NOTE | 2025-01-05 10:46 | ED.GENADUL_ITS ---
Discharge Plan Disposition Patient Disposition: Home Discharge Details Clinical Impression: Left wrist tendonitis Primary Care Provider: None,None ED Provider: Maris Tucker Home Meds and New Rx's Prescriptions: No Action No Known Home Meds Discharge Instructions Instructions: Tendinopathy (DC), Overuse Injuries Additional Instructions: wear the splint for the next two weeks voltaren gel or motrin gel topically over the area of tenderness motrin 400-600 mg every 8 hours for the next 5 days refrain from use of baseball bat for the next two weeks to allow wrist time to heal referral to orthopedics placed for follow-up with persistent pain Referrals: Chas Galindo MD [ [facility]FF [facility]YSICIAN] - [facility] General Date/Time Provider Initiated Documentation: 01/05/25 09:38 . HPI Narrative: The patient is a 24-year-old male who presents with left wrist pain. He has been experiencing this pain for approximately 2.5 weeks. He reports no specific injury but acknowledges regular participation in baseball, including frequent bat swinging. The pain intensifies post-game. Despite resting the wrist for the past 2 days, there has been no improvement in symptoms. He reports no systemic symptoms such as fever or chills and no pain in the elbow. He does report a perceived decrease in range of motion and apprentice machinist outside strength. The pain is predominantly worsened by flexion of the wrist over the ulnar aspect. He reports no changes in sensation or distal pain. He did experience some swelling, which has slightly improved over the past few days, although the pain persists. Related Data Home Medications ?Medication ?Instructions ?Recorded ?Confirmed Unknown [No Known Home Meds] 02/01/24 01/05/25 Allergies Allergy/AdvReac Type Severity Reaction Status Date / Time No Known Allergies Allergy Unverified 01/05/25 09:41 General Stated Complaint: Orthopedic LARRY: 4 Exam Narrative Exam Narrative: General Appearance: The patient is alert, oriented, and in no acute distress. Vital signs: Within normal limits. HEENT: Within normal limits. Respiratory: Within normal limits. Cardiovascular: Gastrointestinal: Genitourinary: Lymphatic: Back, Musculoskeletal: The patient objectively has a normal musculoskeletal exam aside from some mildly diminished range of motion and palpable tenderness over the ulnar aspect of the wrist. Extremities: There is tenderness with palpation over the ulnar aspect of the patient's wrist. 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 Range of motion with flexion is slightly diminished and lateral rotation of the hand elicits pain. There is no obvious swelling to the forearm. Sensation, capillary refill, and distal pulses are all intact. Skin: Warm and dry, no rash. Neurological: Normal. Psychiatric: Other observations: Course Vital Signs Vital signs: Vital Signs Temperature 36.8 C 01/05/25 09:35 Pulse 77 01/05/25 09:35 Respiratory Rate 15 01/05/25 09:35 Blood Pressure 138/70 01/05/25 09:35 Pulse Oximetry 97 01/05/25 09:35 Temperature 36.8 C 01/05/25 09:35 Temperature Source Oral 01/05/25 09:35 Pulse 77 01/05/25 09:35 Respiratory Rate 15 01/05/25 09:35 Blood Pressure 138/70 01/05/25 09:35 Blood Pressure Position Sitting 01/05/25 09:35 Pulse Oximetry 97 01/05/25 09:35 Oxygen Delivery Method Room Air 01/05/25 09:35 Oxygen Flow Rate 0 01/05/25 09:35 Pain Level 6 01/05/25 09:41 Medical Decision Making Imaging X-ray of left wrist shows no evidence of acute abnormality. Initial Assessment: 24-year-old male with left wrist pain for 2.5 weeks, exacerbated by playing baseball, worsened with flexion over the ulnar aspect. Mild swelling, decreased range of motion, and apprentice machinist outside strength noted. No fever, chills, or distal sensation changes. ED Course: - Physical examination reveals tenderness over the ulnar aspect and slightly diminished range of motion. - X-ray of the left wrist shows no acute abnormalities (read by me). - Rest the wrist for the next 2 weeks. - Apply Voltaren or Motrin gel topically. - Take Motrin orally. - Use ice. Final Assessment: Patient with left wrist pain likely due to repetitive strain from playing baseball. No acute abnormalities on x-ray. Treatment includes rest, topical and oral anti-inflammatory medications, and ice application. Clinical Impression: - Left wrist pain Disposition: - Follow-Up: Encouraged to follow up with orthopedics if the pain persists. Patient Education: Return precautions reviewed and patient expressed understanding. MDM Components Evaluation: - Number of Differential Diagnoses or Management Options: Left wrist pain - Amount and Complexity of Data Reviewed: X-ray of the left wrist - Risk of Complication and Morbidity or Mortality: Low risk given normal x-ray and conservative treatment plan. Quality:SDOH Health Related Social Needs: No Data to Display PFSH All Active Problems (Updated 01/05/25 @ 10:33 by CHRISTAL Paz) Left wrist tendonitis (Acute) Social History Smoking/Tobacco Use Status: Never Smoking risk assessment performed?: Yes Alcohol Intake: never Drug use: Never Substance use type: does not use Housing: house Do you feel safe at home: Yes Do you feel safe in your relationship?: Yes
== END 2025-01-05 10:41 | disposition home or self-care (01) ==
LOC: ER 10:47
PROVIDERS: Emergency Provider Physician Assistant
DX: M67.833 Other specified disorders of tendon, right wrist (principal)
CPT/HCPCS: 99283; 73110

== ENCOUNTER 2025-02-10 01:04 | Outpatient (CLI) | payer MEDICAID, SELFPAY ==
--- NOTE | 2025-02-10 07:45 | DI.MRI_ITS ---
Exam(s) MR UPPER JOINT LT WO EXAM: MR UPPER JOINT LT WO CLINICAL HISTORY: ? TFCC TEAR, LT WRIST TENDONITIS, M77.8. TECHNIQUE: Multiplanar multisequence MRI was performed. COMPARISON: Plain films 05 January 2025 FINDINGS: BONES: There edema in the mid to distal hamate involving the hook. No discrete fracture. Remaining bones some show normal marrow signal. JOINTS: No evidence of joint effusion. No visible degenerative changes. TENDONS: Unremarkable. No evidence of tendon tear or tenosynovitis. MUSCLES: Unremarkable. MEDIAN NERVE: Unremarkable on this noncontrast examination. SOFT TISSUES: Unremarkable. TRIANGULAR FIBROCARTILAGE: No gross evidence of tear. Scapholunate ligament appears intact. IMPRESSION: Bone contusion involving the majority of the hamate. No visible tendinitis. Triangular fibrocartila ge appears grossly normal. DATA REPOSITORY:
== END 2025-02-10 01:24 ==
LOC: DI 01:04
PROVIDERS: Visit Provider Student in an Organized Health Care Education/Training Program
DX: M77.8 Other enthesopathies, not elsewhere classified (principal)
CPT/HCPCS: 73221